=== PATIENT | male | born 1995 | race Caucasian/White ===

== ENCOUNTER 2020-11-23 09:03 | Emergency (ER) | payer OTHER ==
[2020-11-23 09:13] VITALS: TEMP 98.1; BMI 27.3
[2020-11-23] MEDS ORDERED: ACETAMINOPHEN 325 MG TABLET (FP) PO ONE (09:44)
[2020-11-23] MEDS ORDERED: ACETAMINOPHEN 325 MG TABLET (FP) ONE (09:49)
[2020-11-23 11:38] VITALS: BP 112/73; PULSE 60
== END 2020-11-23 11:38 | disposition home or self-care (01) ==
LOC: JER 09:03
DX: M79.604 Pain in right leg (principal)
CPT/HCPCS: 70450-TC; 73552-TC-RT-FY; 73590-TC-RT-FY; 99285-25